=== PATIENT | male | born 1955 | race Caucasian/White ===

== ENCOUNTER 2020-06-05 18:55 | Emergency (ER) | payer OTHER ==
[~2020-06-05 18:55] MED LIST: CYCLOBENZAPRINE10 MG PO
== END 2020-06-05 20:40 | disposition home or self-care (01) ==
LOC: FER 18:55
DX: M25.562 Pain in left knee (principal); R26.2 Difficulty in walking, not elsewhere classified; I10 Essential (primary) hypertension; G89.29 Other chronic pain; Z96.642 Presence of left artificial hip joint; Z79.891 Long term (current) use of opiate analgesic
CPT/HCPCS: 96372; J1040; J1885